=== PATIENT | male | born 1955 | race Caucasian/White ===

== ENCOUNTER 2016-05-11 09:21 | Emergency (ER) | payer OTHER ==
[2016-05-11 09:54] VITALS: BP 131/63
--- NOTE | 2016-05-11 11:06 | UC ---
Throat Pain/Nasal Brandon HPI - HPI Summary HPI Summary: compalint of cough and slightly runny nose that started 5 days ago extreme coughing sometimes productive cough extremely fatigued, muscles and joint pain fever and chills - fever of approx 100-101 muscles in abdomnen and chest hurt d/t coughing denies sore throat ear pain denies N/V/D and grandson with similiar illness- wif e dx with influenza taking mucinex, cough drops. 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 KNEE SX. B/L FOOT SX. T&A - Social History Occupation: Disabled Lives: With Family Alcohol Use: None Substance Use Type: None Smoking Status (MU): Never Smoked Tobacco - Immunization History Most Recent Influenza Vaccination: December 2015 Most Recent Pneumonia Vaccination: 2014 Review of Systems Constitutional: Fever, Chills, Fatigue Skin: Negative Eyes: Negative ENT: Nasal Discharge Respiratory: Cough Cardiovascular: Negative Gastrointestinal: Negative Genitourinary: Negative Motor: Negative Musculoskeletal: Myalgia Neurological: Negative Psychological: Negative All Other Systems Reviewed And Are Negative: Yes Physical Exam Triage Information Reviewed: Yes Appearance: No Pain Distress, Well-Nourished, Obese Vital Signs: Initial Vital Signs Temp 98.6 F 05/11/16 09:46 Pulse 70 05/11/16 09:46 Resp 16 05/11/16 09:46 BP 131/63 05/11/16 09:46 Pulse Ox 98 05/11/16 09:46 Vital Signs Reviewed: Yes Eyes: Positive: Conjunctiva Clear ENT: Positive: Pharyngeal erythema, Nasal congestion, Nasal drainage, TMs normal. Negative: TM bulging, TM red, Tonsillar swelling, Tonsillar exudate Neck: Positive: Supple, No Lymphadenopathy Respiratory: Positive: No respiratory distress, Wheezing - RML ,RLL. Negative: Rhonchi Cardiovascular: Positive: RRR, No Murmur Abdomen Description: Positive: Nontender, Soft Bowel Sounds: Positive: Present Musculoskeletal: Positive: No Edema Neurological: Positive: Alert Psychological Exam: Normal Skin Exam: Normal Throat Pain/Nasal Course/Dx - Course Course Of Treatment: exam completed. presumptive influenza with seconday bronchial infection, will start antibiotics and prednsione d/t comorbid conditions and presentation of patient - Differential Dx/Diagnosis Differential Diagnosis/HQI/PQRI: Influenza, URI, Other - bronchitis, pneumonia Provider Diagnoses: influenza, secondary bronchitis Discharge - Discharge Plan Condition: Stable Disposition: HOME Prescriptions: Albuterol HFA INHALER* [Ventolin HFA Inhaler*] 2 puff INH Q4H PRN #1 mdi PRN Reason: Wheezing Azithromycin TAB* [Zithromax TAB (Z-RONDA) 250 mg #6 tabs] 2 tab PO .TODAY, THEN 1 DAILY #1 ronda predniSONE TAB* [Deltasone TAB*] 50 mg PO DAILY #5 tab Patient Education Materials: Influenza (ED), Acute Bronchitis (ED) Referrals: Deshawn Maynard MD [Primary Care Provider] - Additional Instructions: Please take antibiotic and prednisone as directed Use your albuterol inhaler every 4-6 hours when needed for wheezing, shortness of breath or uncontrolled coughing. Increase fluids and rest Take acetaminophen or ibuprofen for fever or pain Please review your discharge instructions. If your symptoms do not improve please call your primary care provider or return to urgent care.
== END 2016-05-11 11:21 | disposition home or self-care (01) ==
LOC: UCCORT 09:21
DX: J11.1 Influenza due to unidentified influenza virus with other respiratory manifestations (principal); J40 Bronchitis, not specified as acute or chronic; E66.9 Obesity, unspecified
CPT/HCPCS: 99212; G0463

== ENCOUNTER 2018-03-08 11:32 | Emergency (ER) | payer OTHER, MEDICARE ==
[2018-03-08 11:52] VITALS: BP 139/84
--- NOTE | 2018-03-08 12:10 | UC ---
Throat Pain/Nasal Brandon HPI - HPI Summary HPI Summary: sinus pain and pressure x 10 days + runny nose, pnd, cough , no fever, no chills - History of Current Complaint Chief Complaint: UCGeneralIllness Stated Complaint: CONGESTION/COUGH Time Seen by Provider: 03/08/18 12:03 Hx Obtained From: Patient Onset/Duration: Gradual Onset, Lasting Days - 10, Still Present Severity: Moderate Pain Intensity: 0 Cough: Nonproductive Associated Signs & Symptoms: Positive: Sinus Discomfort, Nasal Discharge. Negative: Dysphagia, FB Sensation, Drooling, Wheezing, Hoarseness, Fever, Vomiting, Rash - Allergies/Home Medications Allergies/Adverse Reactions: Allergies Allergy/AdvReac Type Severity Reaction Status Date / Time No Known Allergies Allergy Verified 03/08/18 11:52 PMH/Surg Hx/FS Hx/Imm Hx - Additional Past Medical History Additional PMH: hx of back surgery - Surgical History Surgical History: Yes Surgery Procedure, Year, and Place: BACK SX. KNEE SX. B/L FOOT SX. T&A. Spinal cord stimulator trial - Family History Known Family History: Negative: Blood Disorder - Social History Alcohol Use: None Substance Use Type: None Smoking Status (MU): Never Smoked Tobacco - Immunization History Most Recent Influenza Vaccination: December 2015 Most Recent Pneumonia Vaccination: 2014 Review of Systems All Other Systems Reviewed And Are Negative: Yes Constitutional: Positive: Negative Skin: Positive: Negative Eyes: Positive: Negative ENT: Positive: Nasal Discharge, Sinus Congestion, Sinus Pain/Tenderness Respiratory: Positive: Negative Cardiovascular: Positive: Negative Gastrointestinal: Positive: Negative Genitourinary: Positive: Negative Neurovascular: Positive: Negative Is Patient Immunocompromised?: No Physical Exam Triage Information Reviewed: Yes Appearance: Well-Appearing, No Pain Distress, Well-Nourished Vital Signs: Initial Vital Signs Temp 97.7 F 03/08/18 11:50 Pulse 74 03/08/18 11:50 Resp 20 03/08/18 11:50 BP 139/84 03/08/18 11:50 Pulse Ox 98 03/08/18 11:50 Vital Signs Reviewed: Yes Eye Exam: Normal Eyes: Positive: Conjunctiva Clear ENT: Positive: Normal ENT inspection, Hearing grossly normal, Pharyngeal erythema, Nasal congestion, Nasal drainage, Sinus tenderness Respiratory: Positive: Chest non-tender, Lungs clear, Normal breath sounds, No respiratory distress Cardiovascular: Positive: RRR, No Murmur, Pulses Normal, Brisk Capillary Refill Throat Pain/Nasal Course/Dx - Differential Dx/Diagnosis Provider Diagnosis: Sinusitis Discharge - Sign-Out/Discharge Documenting (check all that apply): Patient Departure All imaging exams completed and their final reports reviewed: No Studies - Discharge Plan Condition: Stable Disposition: HOME Prescriptions: Amoxicillin/Clavulanate TAB* [Augmentin TAB 875*] 875 mg PO BID #20 tab Patient Education Materials: Sinusitis (ED) Referrals: Deshawn Maynard MD [Primary Care Provider] - 7 Days - Billing Disposition and Condition Condition: STABLE Disposition: Home
== END 2018-03-08 12:11 | disposition home or self-care (01) ==
LOC: UCCORT 11:32
DX: J32.9 Chronic sinusitis, unspecified (principal)
CPT/HCPCS: 99212; G0463